=== PATIENT | female | born 1960 | race Caucasian/White ===

== ENCOUNTER 2022-01-16 05:33 | Day surgery (SDC) | payer OTHER ==
[~2022-01-16] VITALS: Ht 152.4 cm; Wt 68.0 kg
[2022-01-16] MEDS ORDERED: LIDOCAINE 2% 100 MG/5 ML UJET TP ONE (07:25)
[2022-01-16] MEDS ORDERED: fentaNYL citrate 0.05 MG/ML VIAL ONE (07:25)
[2022-01-16] MEDS ORDERED: fentaNYL citrate 0.05 MG/ML VIAL IVP ONE (08:35)
== END 2022-01-16 08:25 | disposition home or self-care (01) ==
LOC: MMU 05:33 → MOR 05:33
PROVIDERS: ATTEND Internal Medicine Gastroenterology
DX: K62.5 Hemorrhage of anus and rectum (principal); I10 Essential (primary) hypertension; E11.9 Type 2 diabetes mellitus without complications; Z79.84 Long term (current) use of oral hypoglycemic drugs; Z79.899 Other long term (current) drug therapy; Z20.822 Contact with and (suspected) exposure to COVID-19
CPT/HCPCS: 45378; 87426; J3010